=== PATIENT | male | born 1995 ===

== ENCOUNTER → 2020-01-07 | Outpatient (CLI) | payer OTHER | LOC: MHCPAIN 13:03 | DX: M47.817 Spondylosis without myelopathy or radiculopathy, lumbosacral region (principal); M54.6 Pain in thoracic spine; M54.5 Low back pain; M54.2 Cervicalgia; M25.512 Pain in left shoulder | CPT/HCPCS: G0463 ==

== ENCOUNTER → 2020-01-08 | Outpatient (CLI) | payer OTHER | LOC: MHCPAIN 09:49 | DX: M79.18 Myalgia, other site (principal); M41.25 Other idiopathic scoliosis, thoracolumbar region; M54.6 Pain in thoracic spine | CPT/HCPCS: J1040 ==